=== PATIENT | male | born 1965 | race Caucasian/White ===

== ENCOUNTER 2018-06-23 18:50 | Emergency (ER) | payer BC, OTHER, SELFPAY ==
[~2018-06-23 18:50] MED LIST: ISOVUE-370 76%-LOCM 1 ML ONE
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
--- NOTE | 2018-06-23 19:46 | CT ---
FCT cervical spine noncontrast: Date: 06/23/2018 HISTORY: cervical trauma FINDINGS: Alignment is normal. Vertebral body heights are maintained. No prevertebral soft tissue swelling. No perched or jumped facets. No fracture.. IMPRESSION: No acute fracture or acute traumatic subluxation.
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
== END 2018-06-23 21:25 | disposition home or self-care (01) ==
LOC: ERS 18:50
DX: R19.00 Intra-abdominal and pelvic swelling, mass and lump, unspecified site (principal); K43.9 Ventral hernia without obstruction or gangrene; R51 Headache; Z79.899 Other long term (current) drug therapy; V59.49XA Driver of pick-up truck or van injured in collision with other motor vehicles in traffic accident, initial encounter
CPT/HCPCS: 70450; 71260; 72125; 74177; Q9966

== ENCOUNTER 2018-10-12 08:54 | Inpatient (IN) | payer BC, OTHER, SELFPAY ==
[2018-10-12 09:59] LABS: #Basophils 0.1 thou/uL (0.0-0.2); #Eosinphils 0.3 thou/uL (0.0-0.7); #Lymphocytes 1.2 thou/uL (1.20-3.40); #Monocytes 1.1 thou/uL (0.11-0.59); #Neutrophils 7.2 thou/uL (1.40-6.50); %Lymphocytes 12.2 % (21.0-51.0); %Monocytes 11.1 % (0.0-10.0); %Neutrophils 72.7 % (42.0-75.0); Hemoglobin 15.2 g/dL (14.0-18.0); Mean Corpuscular Hemoglobin 31.4 pg (27.0-31.0); Mean Corpuscular Volume 92.4 fL (78.0-98.0); Mean Platelet Volume 8.9 fL (7.4-10.4); Platelet Count 191 thou/uL (130-400); RBC Distribution Width 12.4 % (11.5-14.5); Red Blood Cell (RBC) Count 4.85 mill/uL (4.70-6.10); White Blood Cell (WBC) Count 9.9 thou/uL (4.8-10.8)
[2018-10-12 10:09] LABS: ALT (SGPT) 31 U/L (8-55); AST (SGOT) 19 U/L (5-34); Albumin 3.8 g/dL (3.5-5.0); Alkaline Phosphatase 78 U/L (40-150); Anion Gap 10 mmol/L (10-20); BUN (Urea Nitrogen) 14 mg/dL (8.9-20.6); Bilirubin, Total 0.6 mg/dL (0.2-1.2); Calc. Creatinine Clearance 0 mL/min (70-130); Carbon Dioxide 29 mmol/L (22-29); Chloride 107 mmol/L (98-107); Estimated GFR-MDRD Greater than 90; Globulin 2.7 g/dL (2.4-3.5); Glucose 96 mg/dL (70-105); Potassium 3.7 mmol/L (3.5-5.1); Protein, Total 6.5 g/dL (6.0-8.3); Sodium 142 mmol/L (136-145)
[2018-10-12] MEDS ORDERED: diphenhydrAMINE 50 MG/ML VIAL ONE (11:16)
--- NOTE | 2018-10-12 11:42 | CT ---
ABDOMEN AND PELVIC CT SCAN WITH IV CONTRAST: HISTORY: Abdominal pain, anterior abdominal wall erythema and cellulitis. COMPARISON: 06/23/2018. FINDINGS: Visualized lower lung zones are clear. Status post cholecystectomy. Extensive postop changes, evide nce for prior gastric bypass. Small hiatal hernia. Two circumscribed areas of fatty density in the left upper quadrant probably related to fat necrosis. 9.3 x 12 cm diameter mixed fatty and soft tiss ue density mass in the right anterior lateral abdomen slightly smaller than on the prior study of 06/23 at which time it was 10.1 x 13.7 cm, possibly an omental infarct. There are multiple anterior abdominal wall fat-containing hernias from below the xiphoid down to the umbilicus region at approxim ately the L3 vertebral body level. Approximately 13 cm above the level of the umbilicus there is mariela e subcutaneous fat stranding adjacent to the small fat-containing hernia. Etiology of this is uncert ain, this could conceivably represent some postoperative change. At the time of prior 06/23/2018 study , the patient did have bowel extending into a hernia at this level. At the level of the umbilicus there is a periumbilical fat-containing hernia. Just caudal to this th ere is some focal subcutaneous thickening with a 2 cm diameter circumscribed air and fluid density ce rtainly concerning for the possibility of an abscess. Colonic diverticulosis without acute diverticu litis. Nonobstructing bilateral renal calculi. 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 IMPRESSION: Probable small subcutaneous abscess just at and slightly caudal to the level of the umbilicus. Multi ple other fat-containing anterior abdominal wall hernias above the level of the umbilicus, one of the se has some minimal nonspecific adjacent subcutaneous fat stranding. Large fat and fluid or soft tis hannah circumscribed mass in the right anterolateral abdominal and the right lateral abdomen which is ac tually slightly smaller than on the study. 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 Three-month followup examination is suggested. Evidence for mesenteri c panniculitis. Nonobstructing bilateral renal calculi. POS: TPC
[2018-10-12] MEDS ORDERED: Iopamidol 370 76% 100 ML VIAL ONE (11:45)
[2018-10-12] MEDS ORDERED: Piperacillin/Tazobactam 4.5 GM VIAL ONE (12:54)
[2018-10-12] MEDS ORDERED: Sodium Chloride 0.9% 100 ML ONE (12:57)
[2018-10-12] MEDS ORDERED: Ondansetron ODT 4 MG TAB SL PRN (13:50)
[2018-10-12] MEDS ORDERED: Acetaminophen 325 MG TAB PO PRN (13:50)
[2018-10-12] MEDS ORDERED: Ondansetron PF 4 MG/2 ML Vial IVP PRN (13:52)
[2018-10-12] MEDS ORDERED: Pharmacy to Dose 1 EACH VANCOMYCIN IVPB SCH (16:00)
--- NOTE | 2018-10-12 16:55 | HP ---
CHIEF COMPLAINT: Abdominal wall erythema and swelling and pain. 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 He noticed some erythema, swelling, and pain in his abdominal wall around the umbilicus. Yesterday, he noticed some moisture and foul-smelling fluid coming out from his umbilicus, which basically stopped today, but because of the progression of the problem, he came to the emergency room and he had CT scan of the abdomen done, which showed possible small abscess and gets admitted to the hospital for further management. He received vancomycin and Zosyn in the emergency room. PAST MEDICAL HISTORY: Positive for obesity. PAST SURGICAL HISTORY: 1. Cholecystectomy. 2. Gastric bypass. 3. Hernia repair. 4. Additional abdominal surgery for necrotic parts of omentum. MEDICATIONS: None. ALLERGIES: NONE. SOCIAL HISTORY: He denies any cigarette smoking or alcohol intake or illicit drug use. PSYCHIATRIC HISTORY: None. FAMILY HISTORY: Both parents have hypertension. Grandmother had breast cancer. REVIEW OF SYSTEMS: All 14 systems were reviewed and they are negative except for symptoms mentioned in HPI. PHYSICAL EXAMINATION: VITAL SIGNS: Blood pressure is 111/71, pulse is 79, respirations 17, temperature is 97.7, O2 saturation 98% on room air. He is obese. His BMI is 41.8. HEENT: His head is atraumatic and normocephalic. Eyes are PERRLA. Sclerae are nonicteric. Oral mucosa is moist. NECK: Supple. There is a small lipoma in the right supraclavicular area, not tender to palpation. LUNGS: Clear. HEART: S1 and S2 normal. ABDOMEN: Presenting with erythema approximately 15 to 20 cm in the area of umbilicus. There is also some swelling of this area and tenderness to touch. There is no any pus drainage from the umbilicus. There is no any open area. Bowel sounds are present. No organomegaly. EXTREMITIES: No clubbing, cyanosis, or edema. He has good pulses on both tibialis posterior and dorsalis pedis arteries similar bilaterally. NEUROLOGIC: He is alert and oriented x4. There are no any motor or sensory deficits present. Cranial nerves are intact. LABORATORY DATA: Showed normal CBC except for low lymphocytes, which is 12.2. Normal chemistry. IMPRESSION: 1. Abdominal wall cellulitis with abdominal wall abscess. The patient had the CT done of the abdomen and pelvis in the emergency room, which showed evidence of mesenteric panniculitis and probably small subcutaneous abscess slightly caudal to the level of the umbilicus with multiple other fat containing anterior abdominal wall hernias above the level of the umbilicus and large fat and fluid or soft tissue circumscribed mass in the right anterolateral abdomen and right lateral abdomen, which is actually slightly smaller than on the other study, which were done before. Radiologist favored large mesenteric omental infarct given it is slightly smaller. 2. Morbid obesity. 3. History of gastric bypass. 4. History of previous necrotic areas in the omentum, which was removed surgically. This was just few months ago. PLAN: Plan is admission. Condition is fair. Activity, bedrest and bathroom privileges. IV Hep-Lock. Vancomycin and Zosyn to continue. He had 2 doses in the emergency room, a pain management with tramadol. General Surgery consultation with Dr. Gonsalves. DVT prophylaxis with SCDs and Lovenox q.24 hours subcutaneously and blood cultures. Job ID: [id number]
[2018-10-12] MEDS: Vancomycin HCl 1.5 GM in Sodium Chloride 0.9% 250 ML 300 ML IVPB SCH (16:59)
[2018-10-12 17:09] VITALS: BMI 41.6
[2018-10-12] MEDS: Piperacillin/Tazobactam 3.375 GM in Sodium Chloride 0.9% 100 ML IVPB SCH (18:40)
[2018-10-12] MEDS: traMADol HCl 50 MG TAB PO PRN (19:18)
[2018-10-12] MEDS ORDERED: Vancomycin HCl 1 GM in Sodium Chloride 0.9% 250 ML 250 ML IVPB SCH (22:00)
[2018-10-13] MEDS: Piperacillin/Tazobactam 3.375 GM in Sodium Chloride 0.9% 100 ML IVPB SCH ×5 (00:16→23:59)
[2018-10-13] MEDS: Sodium Chloride 0.9% 1,000 ML IV SCH ×2 (00:17→10:45)
--- NOTE | 2018-10-13 01:16 | CON ---
DATE OF CONSULTATION: REASON FOR CONSULTATION: Suspected abdominal wall abscess. REQUESTING PHYSICIAN: Mahendra Mendieta MD. ATTENDING SURGEON: Dr. Gonsalves. HISTORY OF PRESENT ILLNESS: The patient is a 52-year-old man. The patient presented to the emergency department with a 2-day history of noticing foul-smelling discharge from his umbilicus that today has stopped draining, but has had a fair amount of erythema surrounding his umbilicus and tracking primarily inferiorly. The patient denies any fevers, nausea, vomiting, diarrhea, or changes in bowel habits. The patient denies chills or night sweats. He states that he has not had any issues like this before. 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 ALLERGIES: NONE. CURRENT MEDICATIONS: None. PAST SURGICAL HISTORY: Hernia repair of abdominal wall x2, gastric bypass and cholecystectomy. The patient has had a biopsy of his bowels for a suspected lesion that he states came back negative. SOCIAL HISTORY: The patient denies drug, tobacco, or alcohol use. 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 FAMILY MEDICAL HISTORY: Hypertension. REVIEW OF SYSTEMS: A 10-point review of systems is negative as otherwise stated. PHYSICAL EXAMINATION: VITAL SIGNS: Blood pressure 111/71, heart rate 79, respirations 17, oxygen saturation 98% on room air, and temperature is 97.7. GENERAL: The patient is resting comfortably in bed. He is awake, alert, and oriented x3. Conversant and appropriate. HEENT: Unremarkable. LUNGS: Clear to auscultation bilaterally with good inspiratory and expiratory effort. ABDOMEN: Shows some crusting to the umbilicus, primarily inferiorly oriented erythema approximately 8 cm. There is some tenderness and induration in the umbilicus area. It is a small area of fluctuance again inferior to the umbilicus. NEUROLOGIC: No focal defects. LABORATORY FINDINGS: White blood cell count 9.9, hemoglobin 15.2, hematocrit 44.8, platelets 191. Sodium 142, potassium 3.7, chloride 107, CO2 of 29, BUN 14, creatinine 0.74, glucose 96. LFTs are unremarkable. Lactic acid 0.9. RADIOGRAPHIC FINDINGS: CT of the abdomen and pelvis with IV contrast, there is a probable small subcutaneous abscess just at and slightly caudal to the level of the umbilicus. Multiple other fat containing anterior abdominal wall hernias above the level of the umbilicus. One of these had some minimal nonspecific adjacent subcutaneous fat stranding. There is a large fat and fluid, soft tissue circumscribed mass in the right anterior lateral abdomen and the right lateral abdomen, which is actually slightly smaller than the one on the prior study. ASSESSMENT AND PLAN: Abdominal wall cellulitis with abscess formation, periumbilical. PLAN: Plan will be to make the patient n.p.o. after midnight in preparation for formal irrigation and debridement of the abscess tomorrow. The patient should be continued on his antibiotics as per the Primary Team. IV fluid hydration after midnight in light of him being n.p.o. Pain medications as needed. The evaluation, examination, laboratory, and radiographic findings will be discussed with Dr. Gonsalves, who examined the patient and consent him as dictated. Job ID: [id number]
[2018-10-13] MEDS: Vancomycin HCl 1.5 GM in Sodium Chloride 0.9% 250 ML 300 ML IVPB SCH ×2 (05:01→18:37)
[2018-10-13] MEDS: traMADol HCl 50 MG TAB PO PRN ×2 (05:05→10:33)
[2018-10-13 07:09] LABS: #Basophils 0.1 thou/uL (0.0-0.2); #Eosinphils 0.4 thou/uL (0.0-0.7); #Lymphocytes 1.9 thou/uL (1.20-3.40); #Monocytes 0.9 thou/uL (0.11-0.59); #Neutrophils 6.8 thou/uL (1.40-6.50); %Basophils 0.7 % (0.0-1.0); %Eosinophils 4.2 % (0.0-10.0); %Monocytes 8.9 % (0.0-10.0); %Neutrophils 67.2 % (42.0-75.0); Hemoglobin 15.1 g/dL (14.0-18.0); Mean Corpuscular HGB CONC 32.6 g/dL (32.0-36.0); Mean Corpuscular Hemoglobin 30.4 pg (27.0-31.0); Mean Corpuscular Volume 93.1 fL (78.0-98.0); Mean Platelet Volume 8.2 fL (7.4-10.4); Platelet Count 189 thou/uL (130-400); RBC Distribution Width 12.7 % (11.5-14.5); Red Blood Cell (RBC) Count 4.95 mill/uL (4.70-6.10); White Blood Cell (WBC) Count 10.1 thou/uL (4.8-10.8)
[2018-10-13 07:31] LABS: Anion Gap 9 mmol/L (10-20); BUN (Urea Nitrogen) 10 mg/dL (8.9-20.6); Calc. Creatinine Clearance 208 mL/min (70-130); Carbon Dioxide 29 mmol/L (22-29); Chloride 105 mmol/L (98-107); Estimated GFR-MDRD Greater than 90; Glucose 89 mg/dL (70-105); Potassium 3.8 mmol/L (3.5-5.1); Sodium 139 mmol/L (136-145)
[2018-10-13] MEDS: Enoxaparin Sodium 40 MG/0.4 ML SYRINGE SC SCH (10:35)
--- NOTE | 2018-10-13 11:05 | PDOC.HOSPP ---
- Subjective Subjective: Doing better. No new complaints. Would like to consider Tramadol and Toradol rather than opioids. - Objective Vital Signs & Weight: Vital Signs (12 hours) Temp Pulse Resp BP BP Pulse Ox 10/13/18 08:00 98.1 F 65 18 106/69 97 10/13/18 05:15 97.8 F 64 20 105/68 95 10/13/18 00:00 97.9 F 66 20 98/62 96 Weight Weight 274 lb 12.8 oz I&O: 10/12/18 10/13/18 10/14/18 06:59 06:59 06:59 Intake Total 1170 Balance 1170 Result Diagrams: 10/13/18 06:46 10/13/18 06:46 Radiology Reviewed by me: Yes ROS - Review of Systems All systems: All other ROS were reviewed and found negative. - Medication Medications: Active Medications Generic Name Dose Route Start Last Admin Trade Name Freq PRN Reason Stop Dose Admin Enoxaparin Sodium 40 mg 10/13/18 09:00 10/13/18 10:35 Lovenox SC 40 mg 0900 TAMAR Administration Piperacillin Sod/Tazobactam 100 mls @ 200 mls/hr 10/12/18 18:00 10/13/18 06: 34 Sod 3.375 gm/ Sodium Chloride IVPB 100 mls Q6HR TAMAR Administration Vancomycin HCl 1.5 gm/ Sodium 300 mls @ 200 mls/hr 10/12/18 17:00 10/13/18 05 :01 Chloride IVPB 300 mls 0500,1700 TAMAR Administration Sodium Chloride 1,000 mls @ 120 mls/hr 10/12/18 23:55 10/13/18 10:45 Normal Saline 0.9% IV 10/13/18 16:34 Not Given .[id number] TAMAR Tramadol HCl 100 mg 10/12/18 15:30 10/13/18 10:33 Ultram PO 100 mg Q4H PRN Administration Pain - Exam NAD, awake alert Neck: supple, symmetric, no JVD, no Thyromegaly, no lymphadenopathy, no carotid bruit Heart: RRR, no murmur, no gallops, no rubs, normal peripheral pulses Respiratory: CTAB, no wheezes, no rales, no ronchi, normal chest expansion, no tachypnea, normal percussion Gastrointestinal: soft, non-distended, normal bowel sounds, no palpable masses, no hepatomegaly, no splenomegaly, no bruit, tender to palpation (TTP at the area of erythema around the umbilicus.) Skin: normal turgor, no lesions (Area of erythema emenating from the umbilics caudally. Regressed significantly from the demarcated area. Faint except for the 2 cm below the umbilical scar.), no rashes Neurological: CN's grossly intact, normal sensation to touch, no weakness, no focal deficits, no new deficit Musculoskeletal: normal tone, normal strength, no muscle wasting Psychiatric: normal affect, normal behavior, A&O x 3 Hosp A/P (1) Abscess or cellulitis of umbilicus Code(s): QXH4013 - Status: Acute (2) Hx of bariatric surgery Code(s): Z98.84 - BARIATRIC SURGERY STATUS Status: Acute - Plan COntinue Vanc and Zosyn. Discussed with Dr. Gonsalves. Will continue medical management for now. Normal WBC and afebrile. Will give tramadol and 24 hours of Toradol with PPI.
--- NOTE | 2018-10-13 16:16 | PRG ---
DATE OF SERVICE: 10/13/2018 SUBJECTIVE: Mr. Jackson is a 52-year-old, morbidly obese man, who presented with abdominal wall cellulitis. The patient was started on IV antibiotics. This morning, he reports significant resolution of the redness about his abdomen. He denies any abdominal pain. His bowel habit is normal. He has no fevers or chills. OBJECTIVE: VITAL SIGNS: This morning include blood pressure 105/68, pulse 64, respiratory rate is 20, temperature is 97.8 degrees Fahrenheit, oxygen saturation is 95% on room air. ABDOMEN: Soft, morbidly obese. He has previous infraumbilical curvilinear incision for umbilical herniorrhaphy. There is redness involving approximately 2 to 3 cm circumferentially around the umbilicus. The previous marking which depicted the external borders of the redness before spanned over 25 x 15 cm dimensions. There is no induration, flocculence, tenderness, or palpable abnormalities. I did review the CT scan of the abdomen and pelvis, which revealed the 2-cm infraumbilical fluid collection suggestive of an abscess. My clinical examination, however, fails to locate any palpable flocculence. IMPRESSION: Resolving anterior abdominal wall cellulitis. RECOMMENDATION: Continue IV antibiotic therapy. There is no surgical indication for this patient at this time. General Surgery will sign off at this time, will be available to re-evaluate the patient in the future if demanded. Job ID: [id number]
[2018-10-13] MEDS ORDERED: Vancomycin HCl 1.5 GM in Sodium Chloride 0.9% 250 ML 300 ML IVPB SCH (17:00)
[2018-10-13] MEDS: Ketorolac Tromethamine 30 MG/ML VIAL IVP PRN (21:10)
[2018-10-14] MEDS: Vancomycin HCl 1.5 GM in Sodium Chloride 0.9% 250 ML 300 ML IVPB SCH ×3 (01:33→18:54)
[2018-10-14] MEDS: Piperacillin/Tazobactam 3.375 GM in Sodium Chloride 0.9% 100 ML IVPB SCH ×4 (05:33→23:49)
[2018-10-14] MEDS: Enoxaparin Sodium 40 MG/0.4 ML SYRINGE SC SCH (08:09)
[2018-10-14 09:53] LABS: #Eosinphils 0.4 thou/uL (0.0-0.7); #Lymphocytes 1.2 thou/uL (1.20-3.40); #Monocytes 0.6 thou/uL (0.11-0.59); #Neutrophils 6.4 thou/uL (1.40-6.50); %Basophils 0.6 % (0.0-1.0); %Eosinophils 5.1 % (0.0-10.0); %Lymphocytes 13.5 % (21.0-51.0); %Monocytes 6.6 % (0.0-10.0); %Neutrophils 74.3 % (42.0-75.0); Hemoglobin 14.7 g/dL (14.0-18.0); Mean Corpuscular HGB CONC 33.1 g/dL (32.0-36.0); Mean Corpuscular Volume 93.6 fL (78.0-98.0); Mean Platelet Volume 8.2 fL (7.4-10.4); Platelet Count 182 thou/uL (130-400); RBC Distribution Width 12.5 % (11.5-14.5); Red Blood Cell (RBC) Count 4.72 mill/uL (4.70-6.10); White Blood Cell (WBC) Count 8.6 thou/uL (4.8-10.8)
[2018-10-14] MEDS ORDERED: Lidocaine 1% (PF) 30 ML VIAL ONE (09:58)
[2018-10-14] MEDS: Ketorolac Tromethamine 30 MG/ML VIAL IVP PRN (09:59)
[2018-10-14 10:19] LABS: Anion Gap 9 mmol/L (10-20); BUN (Urea Nitrogen) 7 mg/dL (8.9-20.6); Calc. Creatinine Clearance 211 mL/min (70-130); Calcium 8.5 mg/dL (7.8-10.44); Carbon Dioxide 27 mmol/L (22-29); Chloride 106 mmol/L (98-107); Estimated GFR-MDRD Greater than 90; Glucose 136 mg/dL (70-105); Potassium 3.7 mmol/L (3.5-5.1); Sodium 138 mmol/L (136-145)
--- NOTE | 2018-10-14 13:40 | PDOC.HOSPP ---
- Subjective Subjective: Feels ok. No complaints. Tolerated bedside I and D well. - Objective Vital Signs & Weight: Vital Signs (12 hours) Temp Pulse Resp BP Pulse Ox 10/14/18 08:00 98.2 F 69 18 113/68 99 Weight Weight 274 lb 12.8 oz I&O: 10/13/18 10/14/18 10/15/18 06:59 06:59 06:59 Intake Total 1170 1680 Balance 1170 1680 Result Diagrams: 10/14/18 09:05 10/14/18 09:05 ROS - Review of Systems All systems: All other ROS were reviewed and found negative. - Medication Medications: Active Medications Generic Name Dose Route Start Last Admin Trade Name Freq PRN Reason Stop Dose Admin Enoxaparin Sodium 40 mg 10/13/18 09:00 10/14/18 08:09 Lovenox SC 40 mg 0900 TAMAR Administration Piperacillin Sod/Tazobactam 100 mls @ 200 mls/hr 10/12/18 18:00 10/14/18 05: 33 Sod 3.375 gm/ Sodium Chloride IVPB 100 mls Q6HR TAMAR Administration Vancomycin HCl 1.5 gm/ Sodium 300 mls @ 200 mls/hr 10/13/18 18:00 10/14/18 09 :44 Chloride IVPB 300 mls 0200,1000,1800 TAMAR Administration Pantoprazole Sodium 40 mg 10/14/18 09:00 10/14/18 08:09 Protonix PO 40 mg DAILY TAMAR Administration Tramadol HCl 100 mg 10/12/18 15:30 10/13/18 10:33 Ultram PO 100 mg Q4H PRN Administration Pain - Exam NAD (Obese.), awake alert Heart: RRR, no murmur, no gallops, no rubs, normal peripheral pulses Respiratory: CTAB, no wheezes, no rales, no ronchi, normal chest expansion, no tachypnea, normal percussion Gastrointestinal: soft, non-tender, non-distended, normal bowel sounds, no palpable masses, no hepatomegaly, no splenomegaly, no bruit Skin: normal turgor (Old surgical scar below the umbilicus. Source of erythema. Erythema has resolved.) Neurological: no focal deficits Musculoskeletal: normal tone, normal strength, no muscle wasting Hosp A/P (1) Abscess or cellulitis of umbilicus Code(s): KRI5075 - Status: Acute (2) Hx of bariatric surgery Code(s): Z98.84 - BARIATRIC SURGERY STATUS Status: Acute - Plan Dr. Gonsalves I and D'd the abscess at the surgical scar below the umbilicus. Purulent fluid extracted. Clump of hair extracted. Washed clean. Will continue abx, follow cultures. If negative or if positive with PO option, will DC at that time. Continue wound care (packing).
[2018-10-14 17:24] LABS: Vancomycin, Trough 18.4 ug/mL
--- NOTE | 2018-10-15 00:09 | OP ---
DATE OF PROCEDURE: 10/14/2018 PREOPERATIVE DIAGNOSIS: Periumbilical abscess. POSTOPERATIVE DIAGNOSIS: Periumbilical abscess. PROCEDURE PERFORMED: Incision and drainage of periumbilical abscess. ANESTHESIA: Local. INDICATIONS FOR PROCEDURE: A 52-year-old morbidly obese man, presented with cellulitis of anterior abdominal wall, which has been managed conservatively so far on IV antibiotics. Although the extent of the redness on the abdomen has almost resolved, there is now fluctuance which is localized just inferior to the umbilicus. Decision was made therefore today to incise and drain this abscess. DESCRIPTION OF PROCEDURE: Informed consent obtained from the patient who was placed in supine position. The entire anterior abdominal wall around the umbilicus was sterilely prepped and draped in usual fashion. I then anesthetized the skin right below the umbilicus in the previous surgical scar using 1% lidocaine. A stab incision was then made here using 11 scalpel. Using a Mosquito curved hemostat, the abscess cavity was entered and large amount of purulent pus was evacuated. Cultures were taken. The abscess cavity was copiously irrigated with saline and suctioned out. The cavity was then loosely packed using half-inch plain gauze strips. Sterile dressings were applied. The patient tolerated the procedure without any apparent complication and remained hemodynamically stable following completion of the procedure. Job ID: [id number]
[2018-10-15] MEDS: Vancomycin HCl 1.5 GM in Sodium Chloride 0.9% 250 ML 300 ML IVPB SCH ×2 (01:16→10:50)
--- NOTE | 2018-10-15 01:40 | PRG ---
DATE OF SERVICE: 10/15/2018 SUBJECTIVE: The patient is currently on the medicine floor. He is the patient, we are seeing in consultation for umbilical abscess and cellulitis. The patient since being in the hospital for the last 48 hours has been on IV antibiotics. This morning, he underwent incision and drainage at bedside, which he tolerated well. The Gram stain came back with moderate WBCs, few epithelial cells, RBCs were present, but no organisms seen. The patient remains on IV antibiotics. He is tolerating a diet. His pain is controlled. ASSESSMENT: 1. Status post irrigation and debridement of infraumbilical abscess. 2. Status post irrigation and debridement of the same. PLAN: Plan will be to check his wound tomorrow. He did have loose packing placed today and we will check on culture results. Adjust antibiotics at that time. Job ID: [id number]
[2018-10-15] MEDS: Piperacillin/Tazobactam 3.375 GM in Sodium Chloride 0.9% 100 ML IVPB SCH (06:16)
[2018-10-15] MEDS: Enoxaparin Sodium 40 MG/0.4 ML SYRINGE SC SCH (08:38)
[2018-10-15 11:46] VITALS: BP 127/83; TEMP 98.4
== END 2018-10-15 12:04 | disposition home or self-care (01) | DRG 603 ==
LOC: SCSER 08:54 → T4-B 13:42
PROVIDERS: ADMIT Family Medicine; ATTEND Family Medicine
PROC: 0W9F3ZZ Drainage of Abdominal Wall, Percutaneous Approach (ICD-10-PCS; principal; 2018-10-14)
DX: L02.216 Cutaneous abscess of umbilicus (principal); Z68.41 Body mass index [BMI] 40.0-44.9, adult; L03.311 Cellulitis of abdominal wall; E66.01 Morbid (severe) obesity due to excess calories; Z90.49 Acquired absence of other specified parts of digestive tract; Z98.84 Bariatric surgery status
CPT/HCPCS: 36415; 74177; 80048; 80053; 80202; 83605; 85025; 87040; 87070; 87077; 87186; 87205; J1200; J1650; J1885; J2001; J2543; J3370; J3490; J7050; Q9967